=== PATIENT | female | born 1995 | race Caucasian/White ===

== ENCOUNTER 2018-10-05 15:56 | Inpatient (IN) | payer OTHER ==
[~2018-10-05] VITALS: Ht 162.6 cm; Wt 112.0 kg
[~2018-10-05 15:56] MED LIST: NO HOME MEDICATIONS; PRENATAL PO
[2018-10-28] VITALS (11 sets, daily range): BP systolic 124–144; BP diastolic 68–87; PULSE 64–93; TEMP 98.1–98.6
[2018-10-29 00:06] VITALS: BP 124/81; PULSE 66; TEMP 98.2
[2018-10-29 04:34] VITALS: BP 131/81; PULSE 63; TEMP 98.1
[2018-10-29 08:13] VITALS: BP 124/84; PULSE 60; TEMP 97.4
[2018-10-29 12:04] VITALS: BP 137/87; PULSE 70; TEMP 98.4
[2018-10-29 15:05] VITALS: BP 138/81; PULSE 76; TEMP 97.9
== END 2018-10-29 18:00 | disposition home or self-care (01) | DRG 621 ==
LOC: SURG 10-28 06:39 → INPTSU 10-28 06:39 → SURG 10-28 09:00
PROVIDERS: Surgery
PROC: 0DB64Z3 Excision of Stomach, Percutaneous Endoscopic Approach, Vertical (ICD-10-PCS; principal; 2018-10-28 09:00)
DX: E66.01 Morbid (severe) obesity due to excess calories (principal); Z68.41 Body mass index [BMI] 40.0-44.9, adult; Z23 Encounter for immunization
CPT/HCPCS: J0330; J0690; J1100; J1885; J2250; J2405; J2550; J2704; J3010; J3480; J7120

== ENCOUNTER 2021-09-27 22:46 | Inpatient (IN) | payer BC ==
[~2021-09-27] VITALS: Ht 165.1 cm; Wt 85.5 kg
[2021-09-27 23:30] VITALS: BP 113/71; PULSE 63; TEMP 97.7
[2021-09-27 23:39] LABS: BASO % 0.1 % (0.0-2.0); EOS # 0.1 K/mm3 (0.0-0.7); EOS % 0.4 % (0-4.0); GRAN # 11.7 K/mm3 (1.4-6.5); GRAN % 75.8 % (42.2-75.2); HEMATOCRIT 37.6 % (37.0-47.0); HEMOGLOBIN 13.4 g/dl (12.5-16.0); LYMPH # 2.4 K/mm3 (1.2-3.4); LYMPH % 15.4 % (20.0-51.0); MEAN CELL VOLUME 91 fl (80.0-100.0); MEAN CORPUSCULAR HEMOGLOBIN 33 pg (27.0-31.0); MEAN CORPUSCULAR HGB CONC 36 g/dl (33.0-37.0); MEAN PLATELET VOLUME 10.4 fl (7.4-10.4); MONO # 1.2 K/mm3 (0.1-0.6); MONO % 7.7 % (1.7-9.3); PLATELET COUNT 203 K/mm3 (130-400); RED BLOOD COUNT 4.12 M/mm3 (4.10-5.30); REDCELL DISTRIBUTION WIDTH-CV 12.9 % (11.5-14.5)
[2021-09-27] MEDS ORDERED: ZOLOFT 50MG50 MG PO (23:59)
[2021-09-28] VITALS (38 sets, daily range): BP systolic 95–145; BP diastolic 51–94; PULSE 55–120; TEMP 97.7–99
--- NOTE | 2021-09-28 02:00 | NUR ---
25 YO AT 38.2 WKS GESTATION TO LDR 3 WITH C/O CTXS SINCE DR VISIT THIS AM, THAT HAVE BECOME STRONGER AND CLOSER TOGETHER AND BLOODY SHOW. PT DENIES LEAKING ANY FLUID AND REPORTS GOOD ACTIVITY. PT REPORTS THAT SHE WAS 3CM AT OFFICE VISIT TODAY.
--- NOTE | 2021-09-28 02:16 | NUR ---
JOSEPHINE BRID[employer] CONSULTANT HERE FOR EPIDURAL
--- NOTE | 2021-09-28 02:22 | NUR ---
0002 - UP ON SIDE OF BED FOR EPIDURAL 0006 - TEST DOSE 0010 - DOWN AFTER EPIDURAL, LEFT TILT
--- NOTE | 2021-09-28 06:30 | NUR ---
Difficulty tracing contractions due to maternal position. This RN at bedisde repositioning and adjusting FHR/TOCO monitor.
--- NOTE | 2021-09-28 06:30 | NUR ---
Recieved report from off going RN. Patient repositioned LL with RLS. Patient reports nausea. Zofran given, see EMAR. Updated on plan of care.
--- NOTE | 2021-09-28 09:40 | NUR ---
0940: Patient reports feeling some pressure. SVE 10/100/+[address] Yeboah notified and requested for delivery. 0950: Dr. Baeza to room. Patient set up for delivery. 0952: Patient begins to push with contraction. Moves vertex well. 0953: Spontaneous vaginal delivery by Dr. Baeza. head followed immediately by infant body. Viable female infant on mother's abdomen. Cord clamped x2 by MD and cut by FOB. Care of infant assumed by BARRY Palacios. APGARS 8-9-9. 0955: Spontaneous delivery of intact placenta by . Fundal massage firm. Lochia moderate. Pitocin bolus started per protocol. Periurethral repair done by MD. Updated patient on recovery plan and safety. Pericare provided. Patient repositioned.
[2021-09-28] MEDS ORDERED: MOTRIN 800800 MG/TAB PO (19:57)
--- NOTE | 2021-09-28 21:18 | NUR ---
PT APPEARS TO BE RESTING IN BED BUT RESPONDS TO VERBAL COMMANDS. PT DENIES FURTHER NEEDS AT THIS TIME.
--- NOTE | 2021-09-28 22:50 | NUR ---
Mother resting in bed and appears to be sleeping but responds to verbal commands. This RN gave mother fresh bottle of formula an mother denies further needs at this time.
[2021-09-29] VITALS: BP 107/64; PULSE 58; TEMP 98.2
--- NOTE | 2021-09-29 | NUR ---
PT SITTING UPRIGHT IN BED FEEDING BABE FORMULA. THIS RN GAVE PT A FRESH BOTTLE OF FORMULA FOR BABE. MOTHER DENIES FURTHER NEEDS AT THIS TIME.
[2021-09-29 04:00] VITALS: BP 90/47; PULSE 61; TEMP 98.1
[2021-09-29 08:50] VITALS: BP 108/58; PULSE 79; TEMP 98.1
== END 2021-09-29 15:35 | disposition home or self-care (01) | DRG 807 ==
LOC: LDRO 22:46 → LDR 23:22 → OB 09-28 12:25
PROVIDERS: ADMIT Obstetrics & Gynecology
PROC: 10E0XZZ Delivery of Products of Conception, External Approach (ICD-10-PCS; principal; 2021-09-28)
PROC: 0UQMXZZ Repair Vulva, External Approach (ICD-10-PCS; 2021-09-28)
DX: O99.344 Other mental disorders complicating childbirth (principal); Z37.0 Single live birth; F41.9 Anxiety disorder, unspecified; F32.A Depression, unspecified; O62.1 Secondary uterine inertia; O71.82 Other specified trauma to perineum and vulva; O26.893 Other specified pregnancy related conditions, third trimester; Z67.21 Type B blood, Rh negative; Z3A.38 38 weeks gestation of pregnancy; Z23 Encounter for immunization
CPT/HCPCS: J2210; J2405; J2590; J2791; J7120

== ENCOUNTER 2021-11-04 17:52 | Emergency (ER) | payer OTHER ==
[~2021-11-04] VITALS: Ht 165.1 cm; Wt 79.5 kg
[~2021-11-04 17:52] MED LIST changes: +MOTRIN 800800 MG/TAB PO; +ZOLOFT 50MG50 MG PO
[2021-11-04 17:57] VITALS: TEMP 98.2
[2021-11-04] MEDS ORDERED: BACTRIM DS 8001 TAB PO ×2 (18:01→18:37)
[2021-11-04] MEDS ORDERED: AMOXICILLIN 8751 TAB PO (18:37)
[2021-11-04 18:39] LABS: BASO # 0.1 K/mm3 (0.0-0.2); BASO % 0.3 % (0.0-2.0); EOS # 0.1 K/mm3 (0.0-0.7); GRAN # 11.7 K/mm3 (1.4-6.5); GRAN % 80.6 % (42.2-75.2); HEMATOCRIT 38.7 % (37.0-47.0); HEMOGLOBIN 12.9 g/dl (12.5-16.0); LYMPH # 1.6 K/mm3 (1.2-3.4); LYMPH % 11.2 % (20.0-51.0); MEAN CELL VOLUME 93 fl (80.0-100.0); MEAN CORPUSCULAR HEMOGLOBIN 31 pg (27-31); MEAN CORPUSCULAR HGB CONC 33 g/dl (33.0-37.0); MEAN PLATELET VOLUME 9.8 fl (7.4-10.4); MONO # 0.9 K/mm3 (0.1-0.6); MONO % 6.5 % (1.7-9.3); PLATELET COUNT 235 K/mm3 (130-400); RED BLOOD COUNT 4.18 M/mm3 (4.10-5.30); REDCELL DISTRIBUTION WIDTH-CV 11.9 % (11.5-14.5)
[2021-11-04 18:54] LABS: ALBUMIN 3.4 gm/dL (3.5-5.0); BILIRUBIN,TOTAL 0.3 mg/dL (0.2-1.2); C-REACTIVE PROTEIN 25.59 mg/dL (0.00-0.50); CALCIUM 9.2 mg/dL (8.4-10.2); CREATININE, serum 0.83 mg/dL (0.57-1.11); POTASSIUM 4.1 mmol/L (3.5-4.5); TOTAL PROTEIN 7.2 gm/dL (6.2-8.1)
[2021-11-04 19:29] VITALS: BP 120/81; PULSE 73
== END 2021-11-04 19:29 | disposition home or self-care (01) ==
LOC: COL.ER 17:52
PROVIDERS: Physician Assistant
DX: O91.12 Abscess of breast associated with the puerperium (principal); L03.111 Cellulitis of right axilla; D72.829 Elevated white blood cell count, unspecified
CPT/HCPCS: J0696; J1885

== ENCOUNTER 2021-12-28 22:21 | Emergency (ER) | payer OTHER ==
[~2021-12-28] VITALS: Ht 165.1 cm; Wt 80.9 kg
[~2021-12-28 22:21] MED LIST changes: +AMOXICILLIN 8751 TAB PO; +BACTRIM DS 8001 TAB PO
[2021-12-28 22:40] VITALS: TEMP 98.2
[2021-12-29 00:11] VITALS: BP 115/75; PULSE 66
[2021-12-29] MEDS ORDERED: NORCO 325 MG-51 TAB PO (00:48)
[2021-12-29] MEDS ORDERED: BACTRIM DS 8001 TAB PO (00:48)
== END 2021-12-29 01:15 | disposition home or self-care (01) ==
LOC: COL.ER 22:21
DX: L02.411 Cutaneous abscess of right axilla (principal)